=== PATIENT | male | born 1995 | race Caucasian/White ===

== ENCOUNTER 2017-10-24 07:23 | Emergency (ER) | END 2017-10-24 09:49 | disposition home or self-care (01) ==

== ENCOUNTER 2018-02-08 09:28 | Emergency (ER) | payer SELFPAY ==
[~2018-02-08] VITALS: Ht 175.3 cm; Wt 128.5 kg
[~2018-02-08 09:28] MED LIST: FAMO-96 PO; HYDR-4011 PO
[2018-02-08 09:32] VITALS: BP 150/71; PULSE 83; RESP 18; Ht 175.3 cm; Wt 128.5 kg
[2018-02-08] MEDS ORDERED: HYDR-4011 PO (10:04)
[2018-02-08] MEDS ORDERED: CEPH-443 PO (10:04)
[2018-02-08] MEDS ORDERED: NAPR-985 PO (10:04)
[2018-02-08] MEDS ORDERED: SULF1TAB31 PO (10:04)
--- NOTE | 2018-02-08 10:17 | ERD ---
ER Documentation Chief Complaint Chief Complaint pt is bib self with c/o right sided buttock "ball" since Monday HPI 23-year-old male presenting with pain to his buttock. Patient has had pain for the last 4 days. Progressively getting worse. He denies any fevers. He is never had this before. He is taking pain killers with no alleviation of symptoms. Denies medical problems. NKDA. Surgical history appendectomy. Social history denies ROS All systems reviewed and are negative except as per history of present illness. Medications Home Meds Active Scripts Naproxen* (Naprosyn*) 500 Mg Tablet, 500 MG PO BID PRN for PAIN AND/OR INFLAMMAT ION, #30 TAB Prov:CHERI SAUL PA-C 02/08/18 Hydrocodone/Acetaminophen ([place] 5-325 Tablet) 1 Each Tablet, 1 TAB PO Q6H PRN for PAIN, #7 TAB Prov:CHERI SAUL PA-C 02/08/18 Cephalexin* (Keflex*) 500 Mg Capsule, 500 MG PO QID for 7 Days, CAP Prov:CHERI SAULC 02/08/18 Sulfamethoxazole/Trimethoprim* (Bactrim Ds* Tablet) 1 Each Tablet, 1 TAB PO BID, #14 TAB Prov:CHERI SAUL PA-C 02/08/18 Hydrocodone/Acetaminophen ([place] 5-325 Tablet) 1 Each Tablet, 1 TAB PO Q6H PRN for PAIN, #7 TAB Prov:CHERI SAUL PA-C 10/24/17 Famotidine* (Pepcid*) 20 Mg Tablet, 20 MG PO BID for 4 Days, #30 TAB Prov:CHERI SAUL PA-C 10/24/17 Allergies Allergies: Coded Allergies: No Known Allergy (Unverified , 02/08/18) PMhx/Soc Medical and Surgical Hx: pt denies Medical Hx, pt denies Surgical Hx Hx Alcohol Use: Yes Hx Substance Use: No Hx Tobacco Use: No Smoking Status: Former smoker FmHx Family History: No diabetes, No coronary disease, No other Physical Exam Vitals Vital Signs Date Temp Pulse Resp B/P (MAP) Pulse Ox O2 O2 Flow FiO2 Time Delivery Rate 02/08/18 98.6 83 18 150/71 100 09:32 (97) Physical Exam GENERAL: The patient is well-appearing, well-nourished, in no acute distress CHEST: Clear to auscultation bilaterally. There are no rales, wheezes or rhonchi. HEART: Regular rate and rhythm. No murmurs, clicks, rubs or gallops. No S3 or S4. ABDOMEN:Soft, nontender and nondistended. Good bowel sounds. No rebound or guarding. No gross peritonitis. No gross organomegaly or masses. No Ortega sign or McBurney point tenderness. SKIN: Firm erythematous area noted to the left superior buttock at the gluteal cleft. No fluctuance. No lymphatic streaking. Procedures/MDM MDM: 23-year-old male presenting with abscess. Patient's abscess is not fluctuant and does not ready for I&D. Patient is discharged with antibiotics and pain medication. Patient is told to return in 2 days after applying warm compresses at home and taking antibiotics. He would need I&D within 2 days. I have low suspicion for deep tracking abscess. I have low suspicion for lymphatic infection. Patient is discharged stricter precautions. All questions answered at discharge Departure Diagnosis: Primary Impression: Abscess Condition: Stable Patient Instructions: Abscess, Antiobiotic Treatment Only Referrals: [facility] YOU HAVE RECEIVED A MEDICAL SCREENING EXAM AND THE RESULTS INDICATE THAT YOU DO NOT HAVE A CONDITION THAT REQUIRES URGENT TREATMENT IN THE EMERGENCY DEPARTMENT. FURTHER EVALUATION AND TREATMENT OF YOUR CONDITION CAN WAIT UNTIL YOU ARE SEEN IN YOUR DOCTORS OFFICE WITHIN THE NEXT 1-2 DAYS. IT IS YOUR RESPONSIBILITY TO MAKE AN APPOINTMENT FOR FOLOW-UP CARE. IF YOU HAVE A PRIMARY DOCTOR --you should call your primary doctor and schedule an appointment IF YOU DO NOT HAVE A PRIMARY DOCTOR YOU CAN CALL OUR PHYSICIAN REFERRAL HOTLINE AT IF YOU CAN NOT AFFORD TO SEE A PHYSICIAN YOU CAN CHOSE FROM THE FOLLOWING [facility] CL[facility] [address] [facility] [address] [facility] [address] [facility] [address] [facility] [address] [facility]. [facility] [address] Additional Instructions: FOLLOW UP WITH YOUR PRIMARY CARE PHYSICIAN TOMORROW.Return to this facility if you are not improving as expected. CHERI SAUL PA-C Feb 08, 2018 10:17
== END 2018-02-08 10:18 | disposition home or self-care (01) ==
LOC: FTE 09:28
DX: L02.31 Cutaneous abscess of buttock (principal); Z87.891 Personal history of nicotine dependence
CPT/HCPCS: 99283

== ENCOUNTER 2018-02-11 09:53 | Emergency (ER) | END 2018-02-11 13:20 | disposition home or self-care (01) ==

== ENCOUNTER 2018-02-13 14:20 | Emergency (ER) | payer MEDICAID ==
[~2018-02-13] VITALS: Ht 167.6 cm; Wt 133.5 kg
[~2018-02-13 14:20] MED LIST changes: +CEPH-443 PO; +NAPR-985 PO; +SULF1TAB31 PO
[2018-02-13 14:30] VITALS: BP 128/68; PULSE 72; RESP 20; Ht 167.6 cm; Wt 133.5 kg
--- NOTE | 2018-02-13 15:25 | ERD ---
ER Documentation Chief Complaint Chief Complaint patient here for a recheck/wound check HPI Patient is a 23-year-old male presents ER for concerns of a wound recheck. Patient had a buttocks abscess which was drained 2 days ago. Patient reports taking Bactrim and Keflex as prescribed. Patient denies any fevers or chills. Patient denies any worsening redness, swelling, pain. ROS All systems reviewed and are negative except as per history of present illness. Medications Home Meds Active Scripts Naproxen* (Naprosyn*) 500 Mg Tablet, 500 MG PO BID PRN for PAIN AND/OR INFLAMMATION, #30 TAB Prov:CHERI SAULC 02/08/18 Hydrocodone/Acetaminophen ([place] 5-325 Tablet) 1 Each Tablet, 1 TAB PO Q6H PRN for PAIN, #7 TAB Prov:CHERI SAULC 02/08/18 Cephalexin* (Keflex*) 500 Mg Capsule, 500 MG PO QID for 7 Days, CAP Prov:CHERI SAULC 02/08/18 Sulfamethoxazole/Trimethoprim* (Bactrim Ds* Tablet) 1 Each Tablet, 1 TAB PO BID, #14 TAB Prov:CHERI SAUL PA-C 02/08/18 Hydrocodone/Acetaminophen ([place] 5-325 Tablet) 1 Each Tablet, 1 TAB PO Q6H PRN for PAIN, #7 TAB Prov:CHERI SAULC 10/24/17 Famotidine* (Pepcid*) 20 Mg Tablet, 20 MG PO BID for 4 Days, #30 TAB Prov:CHERI SAULC 10/24/17 Allergies Allergies: Coded Allergies: No Known Allergy (Unverified , 02/11/18) PMhx/Soc History of Surgery: Yes (appendectomy) Anesthesia Reaction: No Hx Alcohol Use: Yes (social) Hx Substance Use: No Hx Tobacco Use: No Smoking Status: Never smoker FmHx Family History: No diabetes Physical Exam Vitals Vital Signs Date Temp Pulse Resp B/P (MAP) Pulse Ox O2 O2 Flow FiO2 Time Delivery Rate 02/13/18 97.5 72 20 128/68 100 14:30 (88) Physical Exam GENERAL: Well-developed, well-nourished male. Appears in no acute distress. HEAD: Normocephalic, atraumatic. EYES: Pupils are equally reactive bilaterally. EOMs grossly intact. No conjunctival erythema. EXTREMITIES: Equal pulses bilaterally. No peripheral clubbing, cyanosis or edema. No unilateral leg swelling. NEUROLOGIC: Alert and oriented. Moving all four extremities without any difficulty. Normal speech. Steady gait. SKIN: Small opening with packing noted in the patient's left superior buttock abscess. Packing removed. No active bleeding or discharge. Area slightly tender to palpation. No lymphatic streaking. Procedures/MDM MEDICAL DECISION MAKING: This is a 23-year-old male who presents for a wound check. Vital signs were reviewed. Patient is afebrile. Packing was removed. No active bleeding or discharge. Patient was advised to continue warm compresses. Patient was to continue antibiotics as prescribed and complete full course. Low suspicion for acute space infection, sepsis. Patient was nontoxic, non-ill appearing prior to discharge. PRESCRIPTIONS: Continue to take antibiotics as prescribed. Complete full course. DISCHARGE: At this time, the patient is stable for discharge and outpatient management. Post-procedural wound care was discussed with the patient. I have instructed the patient to promptly return to the ER for any new or worsening symptoms including increasing pain, fever, warmth, redness or swelling. The patient and/or family expressed understanding of and agreement with this plan. All questions were answered. Home care instructions were provided. Disclaimer: Inadvertent spelling and grammatical errors are likely due to EHR/dictation software use and do not reflect on the overall quality of patient care. Also, please note that the electronic time recorded on this note does not necessarily reflect the actual time of the patient encounter. Departure Diagnosis: Primary Impression: Encounter for wound re-check Additional Impression: Abscess Condition: Stable Patient Instructions: Wound Care Referrals: COMM[facility] YOU HAVE RECEIVED A MEDICAL SCREENING EXAM AND THE RESULTS INDICATE THAT YOU DO NOT HAVE A CONDITION THAT REQUIRES URGENT TREATMENT IN THE EMERGENCY DEPARTMENT. FURTHER EVALUATION AND TREATMENT OF YOUR CONDITION CAN WAIT UNTIL YOU ARE SEEN IN YOUR DOCTORS OFFICE WITHIN THE NEXT 1-2 DAYS. IT IS YOUR RESPONSIBILITY TO MAKE AN APPOINTMENT FOR FOLOW-UP CARE. IF YOU HAVE A PRIMARY DOCTOR --you should call your primary doctor and schedule an appointment IF YOU DO NOT HAVE A PRIMARY DOCTOR YOU CAN CALL OUR PHYSICIAN REFERRAL HOTLINE AT IF YOU CAN NOT AFFORD TO SEE A PHYSICIAN YOU CAN CHOSE FROM THE FOLLOWING [facility] CLINICS [facility] [address] [place] [facility] [address] [place] [facility] [address] [facility] [address] [facility] [address] [facility] [address] [facility]. [facility] YOU HAVE RECEIVED A MEDICAL SCREENING EXAM AND THE RESULTS INDICATE THAT YOU DO NOT HAVE A CONDITION THAT REQUIRES URGENT TREATMENT IN THE EMERGENCY DEPARTMENT. FURTHER EVALUATION AND TREATMENT OF YOUR CONDITION CAN WAIT UNTIL YOU ARE SEEN IN YOUR DOCTORS OFFICE WITHIN THE NEXT 1-2 DAYS. IT IS YOUR RESPONSIBILITY TO MAKE AN APPOINTMENT FOR FOLOW-UP CARE. IF YOU HAVE A PRIMARY DOCTOR --you should call your primary doctor and schedule and appointment IF YOU DO NOT HAVE A PRIMARY DOCTOR YOU CAN CALL OUR PHYSICIAN REFERRAL HOTLINE AT . IF YOU CAN NOT AFFORD TO SEE A PHYSICIAN YOU CAN CHOSE FROM THE FOLLOWING [facility]: [facility] [address] [place] [address] [facility] [address] [place] [address] [facility] [address] [place] [address] Additional Instructions: Continue antibiotics as prescribed. Continue warm compresses. Call your primary care doctor TOMORROW for an appointment during the next 1-2 days.See the doctor sooner or return here if your condition worsens before your appointment time. FRANCESCA DOSHI PA-C Feb 13, 2018 15:24
== END 2018-02-13 15:30 | disposition home or self-care (01) ==
LOC: FTE 14:20
DX: L02.31 Cutaneous abscess of buttock (principal)
CPT/HCPCS: 99281

== ENCOUNTER 2018-11-15 19:28 | Emergency (ER) | payer SELFPAY ==
[~2018-11-15] VITALS: Ht 175.3 cm; Wt 132.1 kg
[~2018-11-15 19:28] MED LIST changes: +AMOX1TAB10 PO; +IBUP-1542 PO
[2018-11-15 19:30] VITALS: BP 141/63; PULSE 90; RESP 16; Ht 175.3 cm; Wt 132.1 kg
[2018-11-15] MEDS ORDERED: DIPHTH/TET/ACEL PERTUSS (ADULT) 0.5 ML VIAL IM* ONE (21:30)
[2018-11-15] MEDS ORDERED: AMOXICILLIN/CLAV 875 MG TAB PO ONE (21:30)
[2018-11-15] MEDS ORDERED: LIDOCAINE 1% (MDV) 20 ML INJ SC ONE (22:00)
== END 2018-11-15 22:19 | disposition home or self-care (01) ==
LOC: FTE 19:28
DX: S41.151A Open bite of right upper arm, initial encounter (principal); W54.0XXA Bitten by dog, initial encounter; Y92.9 Unspecified place or not applicable; Z23 Encounter for immunization
CPT/HCPCS: 90471; 90715